=== PATIENT | female | born 1955 | race Hispanic/Latino ===

== ENCOUNTER 2016-07-13 09:27 | Outpatient (CLI) | payer OTHER ==
[2016-07-13 18:38] LABS: Microalbumin Urine 1.1 mg/dL (0.5-50.0)
== END 2016-07-13 09:28 | disposition home or self-care (01) ==
LOC: HPCALD 09:27
PROVIDERS: ATTEND Family Medicine
DX: E78.00 Pure hypercholesterolemia, unspecified (principal); E11.65 Type 2 diabetes mellitus with hyperglycemia; E03.9 Hypothyroidism, unspecified
CPT/HCPCS: 36415; 80061; 82043; 84443

== ENCOUNTER 2018-02-19 16:27 | Outpatient (CLI) | payer OTHER ==
--- NOTE | 2018-02-19 19:14 | RAD ---
RIGHT FOOT 3 VIEWS: Date: 02/19/18 The bones are osteoporotic. No fracture appreciated. Bones and joints appear intact. Calcaneal spur n oted. IMPRESSION: No acute bony findings. POS: HOME
--- NOTE | 2018-02-19 19:15 | RAD ---
RIGHT ANKLE AND FOOT: Date: 02/19/18 No fracture was seen. There was some soft tissue swelling, but the bones appeared intact at the [facility]. The ankle joint appeared normal. Soft tissue calcifications and vascular calcifications were evide nt. IMPRESSION: No acute findings. POS: HOME
== END 2018-02-19 16:28 | disposition home or self-care (01) ==
LOC: BURRAD 16:27
PROVIDERS: ATTEND Family Medicine
DX: M25.571 Pain in right ankle and joints of right foot (principal); M79.671 Pain in right foot

== ENCOUNTER 2018-09-11 14:20 | Outpatient (CLI) | payer OTHER, MEDICARE ==
--- NOTE | 2018-09-11 18:49 | RAD ---
RIGHT KNEE TWO VIEWS: 09/11/18 No fracture or joint effusion was seen. Tiny osteophytes are seen on the back of the patella and some small ones are seen at the medial and lateral aspects of the knee joint itself. There is a little b it of bony deformity of the proximal tibia medially. This certainly does not appear recent. I doubt i ts current significance. IMPRESSION: Minor arthritic changes. POS: HOME
== END 2018-09-11 14:21 | disposition home or self-care (01) ==
LOC: BURRAD 14:20
PROVIDERS: ATTEND Nurse Practitioner Family
DX: M25.561 Pain in right knee (principal); M17.11 Unilateral primary osteoarthritis, right knee

== ENCOUNTER 2018-09-13 19:56 | Emergency (ER) | payer OTHER, MEDICARE ==
[2018-09-13] MEDS ORDERED: Acetaminophen/Codeine 30-300mg Tablet ONE (20:21)
--- NOTE | 2018-09-13 22:43 | RAD ---
RIGHT SECOND TOE 09/13/18 Three views show a transverse fracture through the distal phalanx. There is slight separation of the fragments. The DIP joint itself does not appear involved. IMPRESSION: Distal phalanx fracture. POS: HOME
== END 2018-09-13 20:27 | disposition home or self-care (01) ==
LOC: BURERS 19:56
DX: S92.531A Displaced fracture of distal phalanx of right lesser toe(s), initial encounter for closed fracture (principal); E11.9 Type 2 diabetes mellitus without complications; E03.9 Hypothyroidism, unspecified; I10 Essential (primary) hypertension; W20.8XXA Other cause of strike by thrown, projected or falling object, initial encounter

== ENCOUNTER 2018-09-18 09:00 | Outpatient (CLI) | payer OTHER, MEDICARE ==
--- NOTE | 2018-09-19 08:11 | ULT ---
RIGHT LOWER EXTREMITY ARTERIAL ULTRASOUND: 09/18/2018 TECHNIQUE: Color duplex Doppler ultrasonography of the arterial system of the right lower extremity is performed . Documentary images and worksheets are provided and reviewed. FINDINGS: There are no areas of very high velocities to suggest a focal high grade stenosis. Flow is adequate throughout all sampled portions of the arterial system. Biphasic flow is seen from the common femora l artery down through the popliteal artery. Monophasic flow is seen in the anterior and posterior ti bial arteries. The peak systolic velocities in the SFA and popliteal arteries are 10-20 cms/sec lowe r than normal, so there could be mild narrowings upstream from here. Flows distal the popliteal howie ry are normal. Peak systolic velocities in each segment follow (cm per second): COMMON FEMORAL: 77 cm per second PROFUNDA FEMORAL: 43 cm per second SFA: 44 to 55 cm per second POPLITEAL: 32 cm per second ANTERIOR TIBIAL: 24 cm per second POSTERIOR TIBIAL: 45 cm per second DORSALIS PEDIS: 46 cm per second IMPRESSION: 1. No evidence of high grade focal stenoses 2. Possible mild narrowings in the SFA region given slightly reduced velocities in the distal SFA an d popliteal arteries. 3. Normal flow distally POS: HOME
== END 2018-09-18 09:01 | disposition home or self-care (01) ==
LOC: BURULT 09:00
PROVIDERS: ATTEND Nurse Practitioner Family
DX: I73.9 Peripheral vascular disease, unspecified (principal)
CPT/HCPCS: 93923

== ENCOUNTER 2018-09-30 11:59 | Outpatient (CLI) | payer OTHER, MEDICARE ==
--- NOTE | 2018-09-30 21:13 | RAD ---
RIGHT FOOT THREE VIEWS: Date: 09-30-18 Comparison: Films of the toes, 09-13-18. FINDINGS: Again noted is the transverse fracture of the distal phalanx of the second toe. There has been no adv erse change in alignment in the interval, but no significant callus is seen as of yet either. The rem ainder of the foot appeared intact. Some arterial calcifications are apparent. IMPRESSION: Fracture of the distal phalanx of the second toe with little change since 09-13-18. POS: HOME
== END 2018-09-30 12:00 | disposition home or self-care (01) ==
LOC: BURRAD 11:59
PROVIDERS: ATTEND Family Medicine
DX: S92.534D Nondisplaced fracture of distal phalanx of right lesser toe(s), subsequent encounter for fracture with routine healing (principal)

== ENCOUNTER 2018-12-23 15:09 | Outpatient (CLI) | payer OTHER, MEDICARE ==
--- NOTE | 2018-12-23 18:35 | RAD ---
RIGHT ANKLE THREE VIEWS: Date: 12-23-18 Comparison: 02-20-18 FINDINGS: No fracture or periosteal reaction of concern was seen. The articular surfaces of the ankle were unre markable. Small calcaneal spur is present similar to before. Arterial calcifications are noted. IMPRESSION: No acute bony finding. POS: HOME
== END 2018-12-23 15:10 | disposition home or self-care (01) ==
LOC: BURRAD 15:09
PROVIDERS: ATTEND Family Medicine
DX: M25.571 Pain in right ankle and joints of right foot (principal)